=== PATIENT | male | born 1965 ===

== ENCOUNTER 2022-05-25 21:00 | Inpatient (IN) ==
[2022-05-25] MEDS ORDERED: PIPERACILLIN/TAZOBACTAM 3,375 MG in SODIUM CHLORIDE 0.9% 100 ML IV STA (22:01)
[2022-05-25 22:18] LABS: Basophils # 0.1 10*3/uL (0.0-0.2); Basophils % 0.3 % (0.0-0.8); Eosinophils # 0.1 10*3/uL (0.0-0.87); Eosinophils % 0.7 % (0.00-10.9); Hematocrit 23.6 VOL% (42.0-52.0); Hemoglobin 7.6 GM/DL (14.0-18.0); Immature Granulocytes % 0.7 %; Immature Granulocytes Absolute 0.12 #; Lymphocytes # 1.2 10*3/uL (1.4-4.0); Lymphocytes % 6.3 % (21.2-54.2); Mean Corpuscular HGB Conc 32.2 GM/DL (32-36); Mean Corpuscular Volume 86.1 FL (87-102); Mean Platelet Volume 9.9 FL (9.6-12.0); Monocytes # 1.7 10*3/uL (0.11-0.8); Platelet Count 258 T/CUMM (130-400); Red Blood Count 2.74 MC/CUMM (3.8-5.5); White Blood Count 18.4 T/CUMM (4-12)
[2022-05-25] MEDS ORDERED: diphenhydrAMINE CAP 25 MG CAPSULE PO PRN (22:18)
[2022-05-25] MEDS ORDERED: NICOTINE 21 MG/24 HR PATCH TRANSDERM PRN (22:18)
[2022-05-25] MEDS ORDERED: hydrALAZINE 20 MG/1 ML VIAL IV PRN (22:18)
[2022-05-25] MEDS ORDERED: guaiFENesin/DM ER 600-30 MG TABLET PO PRN (22:18)
[2022-05-25] MEDS ORDERED: ONDANSETRON 4 MG/2 ML VIAL IV PRN (22:18)
[2022-05-25] MEDS ORDERED: DEXTROSE 10% 250 ML BAG IV PRN (22:18)
[2022-05-25] MEDS ORDERED: ZALEPLON 5 MG CAPSULE PO PRN (22:18)
[2022-05-25] MEDS ORDERED: GLUCAGON 1 MG VIAL IM PRN (22:18)
[2022-05-25] MEDS ORDERED: ACETAMINOPHEN 325 MG TABLET PO PRN (22:18)
[2022-05-25 22:41] LABS: Bilirubin,Total 0.5 MG/DL (0.20-1.00); Calcium 7.9 MG/DL (8.5-10.1); Osmolality,Calculated 289.1 MOS/KG (273-304); Potassium 3.9 MMOL/L (3.5-5.1); Total Protein 6.9 G/DL (6.4-8.2)
[2022-05-25] MEDS ORDERED: VANCOMYCIN INJ 2,000 MG in SODIUM CHLORIDE 0.9% 500 ML IV ONE (23:00)
[2022-05-25] MEDS ORDERED: VANCOMYCIN INJ 2,000 MG in SODIUM CHLORIDE 0.9% 500 ML IV PRN (23:42)
[2022-05-26] MEDS: SODIUM CHLORIDE 0.9% 1,000 ML IV SCH ×2 (01:05→15:20)
[2022-05-26] MEDS: INSULIN LISPRO 100 UNIT/ML SUBCUT SCH ×4 (02:09→18:09)
[2022-05-26 06:17] LABS: Basophils # 0.1 10*3/uL (0.0-0.2); Basophils % 0.3 % (0.0-0.8); Eosinophils # 0.3 10*3/uL (0.0-0.87); Hematocrit 26.5 VOL% (42.0-52.0); Hemoglobin 8.3 GM/DL (14.0-18.0); Immature Granulocytes % 0.5 %; Immature Granulocytes Absolute 0.08 #; Lymphocytes # 1.1 10*3/uL (1.4-4.0); Lymphocytes % 6.9 % (21.2-54.2); Mean Corpuscular HGB Conc 31.3 GM/DL (32-36); Mean Corpuscular Volume 86.9 FL (87-102); Mean Platelet Volume 10.3 FL (9.6-12.0); Monocytes # 1.5 10*3/uL (0.11-0.8); Monocytes % 9.5 % (1.7-12.7); Neutrophils % 80.8 % (38.7-73.9); Platelet Count 234 T/CUMM (130-400); Red Blood Count 3.05 MC/CUMM (3.8-5.5); White Blood Count 15.6 T/CUMM (4-12)
[2022-05-26 06:40] LABS: Calcium 8.6 MG/DL (8.5-10.1); Osmolality,Calculated 290.5 MOS/KG (273-304); Potassium 3.4 MMOL/L (3.5-5.1)
[2022-05-26] MEDS: PIPERACILLIN/TAZOBACTAM 3.375 MG in SODIUM CHLORIDE 0.9% 100 ML IV SCH ×3 (06:47→21:34)
[2022-05-26] MEDS ORDERED: POTASSIUM CHLORIDE 20 MEQ TABLET PO ONE (08:30)
[2022-05-26] MEDS: PANTOPRAZOLE 40 MG TABLET PO SCH (08:33)
[2022-05-26] MEDS ORDERED: propofoL 200 MG/20 ML VIAL IV ONE (12:04)
[2022-05-26] MEDS ORDERED: LIDOCAINE 2% 5 ML VIAL ONE (12:04)
[2022-05-26] MEDS ORDERED: MIDAZOLAM 2 MG/2 ML VIAL ONE (12:04)
[2022-05-26] MEDS ORDERED: fentaNYL 100 MCG/2 ML VIAL ONE (12:04)
[2022-05-26 12:10] LABS: % Iron Saturation 11.2 % (18-50)
[2022-05-26] MEDS ORDERED: LIDOCAINE 1% 5 ML VIAL ONE (12:37)
[2022-05-26] MEDS ORDERED: BUPIVACAINE MPF 0.25% 10 ML VIAL ONE (12:37)
[2022-05-26] MEDS ORDERED: PHENYLEPHRINE 1 MG/10 ML SYRINGE IV ONE (13:23)
[2022-05-26] MEDS ORDERED: SEVOFLURANE 1 UNIT/15 MINUTE INH ONE (13:23)
[2022-05-26] MEDS ORDERED: HYDROmorphone 1 MG/1 ML SYRINGE IV PRN ×2 (14:21)
[2022-05-26] MEDS ORDERED: GLUCAGON 1 MG VIAL IM PRN ×2 (14:23→14:40)
[2022-05-26] MEDS ORDERED: DEXTROSE 10% 250 ML BAG IV PRN (14:23)
[2022-05-26] MEDS ORDERED: DEXTROSE 50% 25 GM/50 ML VIAL IV PRN (14:40)
[2022-05-26] MEDS ORDERED: ENOXAPARIN 30 MG/0.3 ML SYRINGE SUBCUT SCH (15:00)
[2022-05-26 16:44] LABS: Bilirubin,Urine Negative (Negative); Blood, Urine Small mg/dL (Negative); Glucose,Urine (UA) Negative (Negative); Ketones,Urine Negative (Negative); Nitrite,Urine Negative (Negative); Protein,Urine 100 mg/dL (Negative); Urine Appearance Clear (Clear); Urine Color Yellow (Yellow); Urine Urobilinogen 0.2 eU/dL (<2.0); Urine pH 5.5 (4.5-8.0)
[2022-05-26 16:48] LABS: Bacteria,Urine Occasional /HPF (Few); Hyaline Casts,Urine 1 /LPF (0-3); Mucus,Urine Occasional /LPF (Occasional); RBC,Urine 2 /HPF (0-4)
[2022-05-26] MEDS ORDERED: INSULIN GLARGINE 100 UNIT/ML SUBCUT SCH (21:00)
[2022-05-26] MEDS: LATANOPROST 0.005% OPH SOLN 2.5 ML BOTTLE BOTH EYES SCH (21:39)
[2022-05-27] MEDS: INSULIN LISPRO 100 UNIT/ML SUBCUT SCH ×4 (00:22→17:30)
[2022-05-27 05:33] LABS: Basophils # 0.1 10*3/uL (0.0-0.2); Basophils % 0.4 % (0.0-0.8); Eosinophils # 0.5 10*3/uL (0.0-0.87); Eosinophils % 3.2 % (0.00-10.9); Hematocrit 24.4 VOL% (42.0-52.0); Hemoglobin 7.6 GM/DL (14.0-18.0); Immature Granulocytes % 0.6 %; Immature Granulocytes Absolute 0.08 #; Lymphocytes # 1.4 10*3/uL (1.4-4.0); Lymphocytes % 9.9 % (21.2-54.2); Mean Corpuscular HGB Conc 31.1 GM/DL (32-36); Mean Corpuscular Volume 86.2 FL (87-102); Mean Platelet Volume 10.8 FL (9.6-12.0); Monocytes # 1.6 10*3/uL (0.11-0.8); Monocytes % 11.2 % (1.7-12.7); Neutrophils % 74.7 % (38.7-73.9); Platelet Count 229 T/CUMM (130-400); Red Blood Count 2.83 MC/CUMM (3.8-5.5)
[2022-05-27] MEDS: PIPERACILLIN/TAZOBACTAM 3.375 MG in SODIUM CHLORIDE 0.9% 100 ML IV SCH ×2 (05:59→20:23)
[2022-05-27 06:03] LABS: Osmolality,Calculated 294.4 MOS/KG (273-304); Potassium 3.8 MMOL/L (3.5-5.1)
[2022-05-27 06:08] LABS: Alanine Aminotransferase 82 U/L (16-61); Albumin 1.8 G/DL (3.4-5.0); Alkaline Phosphatase 141 U/L (45-117); Aspartate Amino Transferase 69 U/L (0-37); Bilirubin,Total < 0.39 MG/DL (0.20-1.00); Blood Urea Nitrogen 45 MG/DL (7-18); Calcium 7.9 MG/DL (8.5-10.1); Carbon Dioxide 20 MMOL/L (21-32); Chloride 112 MMOL/L (98-107); Glucose 198 MG/DL (74-106); Osmolality,Calculated 298.3 MOS/KG (273-304); Potassium 3.7 MMOL/L (3.5-5.1); Sodium 141 MMOL/L (136-145); Total Protein 6.7 G/DL (6.4-8.2)
[2022-05-27] MEDS ORDERED: POTASSIUM CHLORIDE 20 MEQ TABLET PO ONE (08:00)
[2022-05-27] MEDS ORDERED: MAGNESIUM SULF RIDER 2 GM/50 ML PREMIX IV ONE (08:15)
[2022-05-27] MEDS: CHOLECALCIFEROL 1,000 UNIT TABLET PO SCH (08:29)
[2022-05-27] MEDS: ROSUVASTATIN 20 MG TABLET PO SCH (08:29)
[2022-05-27] MEDS: PANTOPRAZOLE 40 MG TABLET PO SCH (08:29)
[2022-05-27] MEDS: CHLORTHALIDONE 25 MG TABLET PO SCH (08:29)
[2022-05-27] MEDS: SODIUM HYPOCHLORITE 0.25% IRRIG 473 ML BOTTLE TOP SCH (08:30)
[2022-05-27] MEDS: lisinopriL 20 MG TABLET PO SCH (08:30)
[2022-05-27] MEDS ORDERED: ENOXAPARIN 40 MG/0.4 ML SYRINGE SUBCUT SCH (08:30)
[2022-05-27] MEDS: ASPIRIN EC 81 MG TABLET PO SCH (08:30)
[2022-05-27] MEDS: CETIRIZINE 10 MG TABLET PO SCH (08:30)
[2022-05-27] MEDS: ENOXAPARIN 30 MG/0.3 ML SYRINGE SUBCUT SCH (08:38)
[2022-05-27] MEDS ORDERED: SODIUM CHLORIDE 0.9% 1,000 ML IV PRN (08:55)
[2022-05-27] MEDS ORDERED: VANCOMYCIN INJ 1,500 MG in SODIUM CHLORIDE 0.9% 500 ML IV PRN (09:23)
[2022-05-27 09:36] LABS: Hepatitis B Core IgM Quant 0.12 Index; Hepatitis B Surface Ag Quant < 0.10 Index; Hepatitis B Surface Ag Result Non-Reactive (NonReactive); Hepatitis C Virus Ab Quant 0.26 Index; Hepatitis C Virus Ab Result Non-Reactive (NonReactive)
[2022-05-27] MEDS ORDERED: VANCOMYCIN INJ 1,500 MG in SODIUM CHLORIDE 0.9% 500 ML IV ONE (10:00)
[2022-05-27] MEDS: FERRIC GLUCONATE COMPLEX 125 MG in SODIUM CHLORIDE 0.9% 100 ML IV SCH (11:55)
[2022-05-27] MEDS: LATANOPROST 0.005% OPH SOLN 2.5 ML BOTTLE BOTH EYES SCH (20:26)
[2022-05-27] MEDS ORDERED: INSULIN GLARGINE 100 UNIT/ML SUBCUT SCH ×2 (21:00)
[2022-05-27] MEDS: SODIUM CHLORIDE 0.9% 1,000 ML IV SCH (22:36)
[2022-05-28] MEDS: INSULIN LISPRO 100 UNIT/ML SUBCUT SCH ×4 (00:46→19:19)
[2022-05-28] MEDS: PIPERACILLIN/TAZOBACTAM 3.375 MG in SODIUM CHLORIDE 0.9% 100 ML IV SCH ×3 (04:01→21:25)
[2022-05-28 05:31] LABS: Basophils # 0.1 10*3/uL (0.0-0.2); Basophils % 0.5 % (0.0-0.8); Eosinophils # 0.7 10*3/uL (0.0-0.87); Eosinophils % 6.3 % (0.00-10.9); Hematocrit 27.2 VOL% (42.0-52.0); Hemoglobin 8.4 GM/DL (14.0-18.0); Immature Granulocytes % 0.6 %; Immature Granulocytes Absolute 0.07 #; Lymphocytes # 1.3 10*3/uL (1.4-4.0); Lymphocytes % 10.9 % (21.2-54.2); Mean Corpuscular HGB Conc 30.9 GM/DL (32-36); Mean Corpuscular Volume 85.5 FL (87-102); Mean Platelet Volume 10.2 FL (9.6-12.0); Monocytes # 1.1 10*3/uL (0.11-0.8); Monocytes % 9.8 % (1.7-12.7); Neutrophils % 71.9 % (38.7-73.9); Platelet Count 236 T/CUMM (130-400); Red Blood Count 3.18 MC/CUMM (3.8-5.5); Red Cell Distribution Width 15.4 % (9.3-17.3); White Blood Count 11.7 T/CUMM (4-12)
[2022-05-28 05:47] LABS: Alanine Aminotransferase 63 U/L (16-61); Albumin 1.8 G/DL (3.4-5.0); Alkaline Phosphatase 121 U/L (45-117); Aspartate Amino Transferase 32 U/L (0-37); Bilirubin,Total < 0.39 MG/DL (0.20-1.00); Blood Urea Nitrogen 38 MG/DL (7-18); Calcium 8.1 MG/DL (8.5-10.1); Carbon Dioxide 22 MMOL/L (21-32); Chloride 116 MMOL/L (98-107); Glucose 198 MG/DL (74-106); Sodium 143 MMOL/L (136-145); Total Protein 6.5 G/DL (6.4-8.2)
[2022-05-28 05:49] LABS: Calcium 7.9 MG/DL (8.5-10.1); Osmolality,Calculated 300.8 MOS/KG (273-304); Potassium 4.2 MMOL/L (3.5-5.1)
[2022-05-28] MEDS: lisinopriL 20 MG TABLET PO SCH (08:40)
[2022-05-28] MEDS: CHOLECALCIFEROL 1,000 UNIT TABLET PO SCH (08:40)
[2022-05-28] MEDS: CETIRIZINE 10 MG TABLET PO SCH (08:40)
[2022-05-28] MEDS: CHLORTHALIDONE 25 MG TABLET PO SCH (08:40)
[2022-05-28] MEDS: ASPIRIN EC 81 MG TABLET PO SCH (08:41)
[2022-05-28] MEDS: ENOXAPARIN 30 MG/0.3 ML SYRINGE SUBCUT SCH (08:41)
[2022-05-28] MEDS: FERRIC GLUCONATE COMPLEX 125 MG in SODIUM CHLORIDE 0.9% 100 ML IV SCH (08:41)
[2022-05-28] MEDS: ROSUVASTATIN 20 MG TABLET PO SCH (08:41)
[2022-05-28] MEDS: SODIUM HYPOCHLORITE 0.25% IRRIG 473 ML BOTTLE TOP SCH (08:41)
[2022-05-28] MEDS: PANTOPRAZOLE 40 MG TABLET PO SCH (08:41)
[2022-05-28] MEDS ORDERED: DEXTROSE 50% 25 GM/50 ML VIAL IV PRN (11:03)
[2022-05-28] MEDS ORDERED: GLUCAGON 1 MG VIAL IM PRN (11:03)
[2022-05-28] MEDS ORDERED: INSULIN GLARGINE 100 UNIT/ML SUBCUT SCH (21:00)
[2022-05-29] MEDS: LATANOPROST 0.005% OPH SOLN 2.5 ML BOTTLE BOTH EYES SCH (00:07)
[2022-05-29] MEDS: INSULIN LISPRO 100 UNIT/ML SUBCUT SCH ×3 (01:55→11:50)
[2022-05-29] MEDS: PIPERACILLIN/TAZOBACTAM 3.375 MG in SODIUM CHLORIDE 0.9% 100 ML IV SCH (04:53)
[2022-05-29 05:32] LABS: Basophils # 0.1 10*3/uL (0.0-0.2); Basophils % 0.7 % (0.0-0.8); Eosinophils # 0.8 10*3/uL (0.0-0.87); Eosinophils % 7.2 % (0.00-10.9); Hematocrit 27.4 VOL% (42.0-52.0); Hemoglobin 8.8 GM/DL (14.0-18.0); Immature Granulocytes Absolute 0.11 #; Lymphocytes # 1.1 10*3/uL (1.4-4.0); Lymphocytes % 10.8 % (21.2-54.2); Mean Corpuscular HGB Conc 32.1 GM/DL (32-36); Mean Corpuscular Volume 85.4 FL (87-102); Mean Platelet Volume 10.3 FL (9.6-12.0); Monocytes % 9.2 % (1.7-12.7); Neutrophils % 71.1 % (38.7-73.9); Platelet Count 269 T/CUMM (130-400); Red Blood Count 3.21 MC/CUMM (3.8-5.5); Red Cell Distribution Width 15.1 % (9.3-17.3); White Blood Count 10.6 T/CUMM (4-12)
[2022-05-29 05:55] LABS: Alanine Aminotransferase 45 U/L (16-61); Albumin 1.9 G/DL (3.4-5.0); Alkaline Phosphatase 106 U/L (45-117); Aspartate Amino Transferase 14 U/L (0-37); Bilirubin,Total < 0.39 MG/DL (0.20-1.00); Blood Urea Nitrogen 30 MG/DL (7-18); Calcium 8.4 MG/DL (8.5-10.1); Carbon Dioxide 22 MMOL/L (21-32); Chloride 114 MMOL/L (98-107); Glucose 220 MG/DL (74-106); Osmolality,Calculated 298.8 MOS/KG (273-304); Potassium 3.9 MMOL/L (3.5-5.1); Sodium 144 MMOL/L (136-145); Total Protein 6.6 G/DL (6.4-8.2)
[2022-05-29 05:56] LABS: Osmolality,Calculated 299.8 MOS/KG (273-304); Potassium 4.1 MMOL/L (3.5-5.1)
[2022-05-29] MEDS: CHLORTHALIDONE 25 MG TABLET PO SCH (08:54)
[2022-05-29] MEDS: lisinopriL 20 MG TABLET PO SCH (08:55)
[2022-05-29] MEDS ORDERED: GLUCAGON 1 MG VIAL IM PRN (09:00)
[2022-05-29] MEDS ORDERED: DEXTROSE 50% 25 GM/50 ML VIAL IV PRN (09:00)
[2022-05-29] MEDS: ROSUVASTATIN 20 MG TABLET PO SCH (09:15)
[2022-05-29] MEDS: CHOLECALCIFEROL 1,000 UNIT TABLET PO SCH (09:15)
[2022-05-29] MEDS: ASPIRIN EC 81 MG TABLET PO SCH (09:15)
[2022-05-29] MEDS: CETIRIZINE 10 MG TABLET PO SCH (09:15)
[2022-05-29] MEDS: PANTOPRAZOLE 40 MG TABLET PO SCH (09:15)
[2022-05-29] MEDS: ENOXAPARIN 30 MG/0.3 ML SYRINGE SUBCUT SCH (09:18)
[2022-05-29] MEDS: FERRIC GLUCONATE COMPLEX 125 MG in SODIUM CHLORIDE 0.9% 100 ML IV SCH (09:18)
[2022-05-29] MEDS: SODIUM HYPOCHLORITE 0.25% IRRIG 473 ML BOTTLE TOP SCH (09:20)
[2022-05-29 11:25] VITALS: BP 124/54
[2022-05-29] MEDS ORDERED: PIPERACILLIN/TAZOBACTAM 3,375 MG in SODIUM CHLORIDE 0.9% 100 ML IV SCH (14:00)
[2022-05-29] MEDS ORDERED: INSULIN GLARGINE 100 UNIT/ML SUBCUT SCH (21:00)
== END 2022-05-29 13:18 | disposition home or self-care (01) | DRG 240 ==
LOC: EDBD → EDUNIT# → N.ED 21:00 → N.3E 22:18 → SUATTDRO 22:18 → N.3E 05-26 00:17
PROVIDERS: ADMIT Internal Medicine; ATTEND Internal Medicine

== ENCOUNTER 2022-07-15 16:03 | Inpatient (IN) ==
[2022-07-15 18:06] LABS: Basophils % 0.3 % (0.0-0.8); Eosinophils # 0.3 10*3/uL (0.0-0.87); Eosinophils % 2.9 % (0.00-10.9); Hematocrit 26.5 VOL% (42.0-52.0); Hemoglobin 8.1 GM/DL (14.0-18.0); Immature Granulocytes % 0.6 %; Immature Granulocytes Absolute 0.05 #; Lymphocytes % 11.2 % (21.2-54.2); Mean Corpuscular HGB Conc 30.6 GM/DL (32-36); Mean Corpuscular Volume 84.4 FL (87-102); Mean Platelet Volume 9.5 FL (9.6-12.0); Monocytes # 0.9 10*3/uL (0.11-0.8); Monocytes % 9.9 % (1.7-12.7); Neutrophils % 75.1 % (38.7-73.9); Platelet Count 294 T/CUMM (130-400); Red Blood Count 3.14 MC/CUMM (3.8-5.5); Red Cell Distribution Width 16.4 % (9.3-17.3); White Blood Count 9.1 T/CUMM (4-12)
[2022-07-15] MEDS ORDERED: PIPERACILLIN/TAZOBACTAM 3,375 MG in SODIUM CHLORIDE 0.9% 100 ML IV STA (18:26)
[2022-07-15 18:46] LABS: Alanine Aminotransferase 15 U/L (16-61); Albumin 2.7 G/DL (3.4-5.0); Alkaline Phosphatase 98 U/L (45-117); Aspartate Amino Transferase 14 U/L (0-37); Bilirubin,Total < 0.39 MG/DL (0.20-1.00); Blood Urea Nitrogen 34 MG/DL (7-18); Calcium 8.6 MG/DL (8.5-10.1); Carbon Dioxide 24 MMOL/L (21-32); Chloride 109 MMOL/L (98-107); Glucose 107 MG/DL (74-106); Osmolality,Calculated 282.7 MOS/KG (273-304); Potassium 4.3 MMOL/L (3.5-5.1); Sodium 138 MMOL/L (136-145); Total Protein 7.1 G/DL (6.4-8.2)
[2022-07-15] MEDS ORDERED: HYDROmorphone 1 MG/1 ML SYRINGE IV PRN (19:52)
[2022-07-15] MEDS ORDERED: GLUCAGON 1 MG VIAL IM PRN (19:52)
[2022-07-15] MEDS ORDERED: ONDANSETRON 4 MG/2 ML VIAL IV PRN (19:52)
[2022-07-15] MEDS ORDERED: ACETAMINOPHEN 325 MG TABLET PO PRN (19:52)
[2022-07-15] MEDS ORDERED: DEXTROSE 10% 250 ML BAG IV PRN (20:00)
[2022-07-15] MEDS ORDERED: cephALEXin 500 MG CAPSULE PO SCH (21:00)
[2022-07-15] MEDS: SODIUM CHLORIDE 0.9% 1,000 ML IV SCH (22:47)
[2022-07-15] MEDS: INSULIN GLARGINE 100 UNIT/ML SUBCUT SCH (22:57)
[2022-07-16] MEDS: INSULIN REGULAR 100 UNIT/ML SUBCUT SCH ×2 (00:22→06:41)
[2022-07-16] MEDS: PIPERACILLIN/TAZOBACTAM 3,375 MG in SODIUM CHLORIDE 0.9% 100 ML IV SCH ×3 (03:32→20:38)
[2022-07-16 05:11] LABS: Basophils % 0.6 % (0.0-0.8); Eosinophils # 0.3 10*3/uL (0.0-0.87); Eosinophils % 4.8 % (0.00-10.9); Hematocrit 22.4 VOL% (42.0-52.0); Hemoglobin 6.9 GM/DL (14.0-18.0); Immature Granulocytes Absolute 0.07 #; Lymphocytes % 14.3 % (21.2-54.2); Mean Corpuscular HGB Conc 30.8 GM/DL (32-36); Mean Corpuscular Volume 86.2 FL (87-102); Mean Platelet Volume 9.8 FL (9.6-12.0); Monocytes # 0.7 10*3/uL (0.11-0.8); Monocytes % 10.3 % (1.7-12.7); Platelet Count 267 T/CUMM (130-400); Red Cell Distribution Width 16.1 % (9.3-17.3); White Blood Count 7.1 T/CUMM (4-12)
[2022-07-16 05:33] LABS: Alanine Aminotransferase 15 U/L (16-61); Albumin 2.3 G/DL (3.4-5.0); Alkaline Phosphatase 94 U/L (45-117); Aspartate Amino Transferase 9 U/L (0-37); Bilirubin,Total < 0.39 MG/DL (0.20-1.00); Blood Urea Nitrogen 30 MG/DL (7-18); Calcium 8.9 MG/DL (8.5-10.1); Carbon Dioxide 27 MMOL/L (21-32); Chloride 110 MMOL/L (98-107); Glucose 235 MG/DL (74-106); Potassium 4.3 MMOL/L (3.5-5.1); Sodium 143 MMOL/L (136-145)
[2022-07-16 07:57] LABS: Hematocrit 22.6 VOL% (42.0-52.0); Hemoglobin 6.7 GM/DL (14.0-18.0)
[2022-07-16] MEDS ORDERED: INSULIN ASPART PROTAMINE/ASPART 70/30 100 UNIT/ML SUBCUT SCH (08:00)
[2022-07-16] MEDS ORDERED: INSULIN LISPRO 100 UNIT/ML SUBCUT SCH (08:00)
[2022-07-16] MEDS: sitaGLIPtin 25 MG TABLET PO SCH ×2 (08:30→11:51)
[2022-07-16] MEDS: CHLORTHALIDONE 25 MG TABLET PO SCH ×2 (08:30→11:50)
[2022-07-16] MEDS: PANTOPRAZOLE 40 MG TABLET PO SCH (08:31)
[2022-07-16] MEDS: INSULIN GLARGINE 100 UNIT/ML SUBCUT SCH (08:35)
[2022-07-16] MEDS ORDERED: SODIUM CHLORIDE 0.9% 1,000 ML IV PRN (09:13)
[2022-07-16] MEDS ORDERED: SODIUM CHLORIDE 0.9% 1,000 ML IV ONE (09:13)
[2022-07-16] MEDS: SODIUM CHLORIDE 0.9% 1,000 ML IV SCH ×2 (10:26→11:39)
[2022-07-16] MEDS ORDERED: DEXTROSE 50% 25 GM/50 ML VIAL IV PRN (10:44)
[2022-07-16] MEDS: INSULIN LISPRO 100 UNIT/ML SUBCUT SCH ×3 (11:52→20:39)
[2022-07-16] MEDS: SODIUM HYPOCHLORITE 0.25% IRRIG 473 ML BOTTLE TOP SCH (12:48)
[2022-07-16 20:32] LABS: Hematocrit 29.1 VOL% (42.0-52.0); Hemoglobin 9.1 GM/DL (14.0-18.0)
[2022-07-16] MEDS: TAMSULOSIN 0.4 MG CAPSULE PO SCH (20:38)
[2022-07-17] MEDS: SODIUM CHLORIDE 0.9% 1,000 ML IV SCH ×4 (00:33→22:26)
[2022-07-17] MEDS: INSULIN LISPRO 100 UNIT/ML SUBCUT SCH ×6 (00:33→22:27)
[2022-07-17] MEDS: PIPERACILLIN/TAZOBACTAM 3,375 MG in SODIUM CHLORIDE 0.9% 100 ML IV SCH ×3 (02:14→18:56)
[2022-07-17 05:34] LABS: Basophils % 0.5 % (0.0-0.8); Eosinophils # 0.5 10*3/uL (0.0-0.87); Eosinophils % 5.9 % (0.00-10.9); Hematocrit 30.2 VOL% (42.0-52.0); Hemoglobin 9.4 GM/DL (14.0-18.0); Immature Granulocytes % 0.9 %; Immature Granulocytes Absolute 0.07 #; Lymphocytes # 1.1 10*3/uL (1.4-4.0); Lymphocytes % 13.6 % (21.2-54.2); Mean Corpuscular HGB Conc 31.1 GM/DL (32-36); Mean Corpuscular Volume 85.6 FL (87-102); Mean Platelet Volume 9.7 FL (9.6-12.0); Monocytes # 0.8 10*3/uL (0.11-0.8); Monocytes % 9.2 % (1.7-12.7); Neutrophils % 69.9 % (38.7-73.9); Platelet Count 277 T/CUMM (130-400); Red Blood Count 3.53 MC/CUMM (3.8-5.5); Red Cell Distribution Width 16.2 % (9.3-17.3); White Blood Count 8.2 T/CUMM (4-12)
[2022-07-17 05:53] LABS: Calcium 8.8 MG/DL (8.5-10.1); Osmolality,Calculated 291.8 MOS/KG (273-304); Potassium 4.2 MMOL/L (3.5-5.1)
[2022-07-17] MEDS ORDERED: LIDOCAINE 2% 5 ML VIAL ONE (11:21)
[2022-07-17] MEDS ORDERED: MIDAZOLAM 2 MG/2 ML VIAL ONE (11:21)
[2022-07-17] MEDS ORDERED: propofoL 200 MG/20 ML VIAL IV ONE (11:21)
[2022-07-17] MEDS ORDERED: fentaNYL 100 MCG/2 ML VIAL ONE (11:22)
[2022-07-17] MEDS ORDERED: DEXAMETHASONE 4 MG/1 ML VIAL ONE (12:13)
[2022-07-17] MEDS ORDERED: ONDANSETRON 4 MG/2 ML VIAL ONE (12:13)
[2022-07-17] MEDS ORDERED: ACETAMINOPHEN INJ 1,000 MG/100 ML VIAL IV ONE (12:13)
[2022-07-17] MEDS ORDERED: ePHEDrine 50 MG/ML VIAL ONE (12:33)
[2022-07-17] MEDS ORDERED: PHENYLEPHRINE 1 MG/10 ML SYRINGE IV ONE ×2 (12:35→12:55)
[2022-07-17] MEDS ORDERED: SEVOFLURANE 1 UNIT/15 MINUTE INH ONE ×2 (12:35→12:55)
[2022-07-17] MEDS: SODIUM HYPOCHLORITE 0.25% IRRIG 473 ML BOTTLE TOP SCH (12:54)
[2022-07-17] MEDS: INSULIN GLARGINE 100 UNIT/ML SUBCUT SCH (12:55)
[2022-07-17] MEDS: CETIRIZINE 10 MG TABLET PO SCH ×3 (12:55→14:26)
[2022-07-17] MEDS ORDERED: ONDANSETRON 4 MG/2 ML VIAL IV PRN (13:31)
[2022-07-17] MEDS: HYDROmorphone 1 MG/1 ML SYRINGE IV PRN ×2 (13:37→13:44)
[2022-07-17] MEDS: ROSUVASTATIN 20 MG TABLET PO SCH (14:22)
[2022-07-17] MEDS: CHLORTHALIDONE 25 MG TABLET PO SCH (14:22)
[2022-07-17] MEDS: ASPIRIN EC 81 MG TABLET PO SCH (14:22)
[2022-07-17] MEDS: sitaGLIPtin 25 MG TABLET PO SCH (14:23)
[2022-07-17] MEDS: PANTOPRAZOLE 40 MG TABLET PO SCH (14:23)
[2022-07-17] MEDS: TAMSULOSIN 0.4 MG CAPSULE PO SCH (21:03)
[2022-07-18] MEDS: INSULIN LISPRO 100 UNIT/ML SUBCUT SCH ×6 (00:10→20:28)
[2022-07-18] MEDS: SODIUM CHLORIDE 0.9% 1,000 ML IV SCH ×3 (01:31→18:42)
[2022-07-18] MEDS: PIPERACILLIN/TAZOBACTAM 3,375 MG in SODIUM CHLORIDE 0.9% 100 ML IV SCH ×3 (03:40→18:09)
[2022-07-18] MEDS: sitaGLIPtin 25 MG TABLET PO SCH (09:21)
[2022-07-18] MEDS: ASPIRIN EC 81 MG TABLET PO SCH (09:21)
[2022-07-18] MEDS: ROSUVASTATIN 20 MG TABLET PO SCH (09:21)
[2022-07-18] MEDS: CETIRIZINE 10 MG TABLET PO SCH (09:22)
[2022-07-18] MEDS: CHLORTHALIDONE 25 MG TABLET PO SCH (09:22)
[2022-07-18] MEDS: PANTOPRAZOLE 40 MG TABLET PO SCH (09:22)
[2022-07-18] MEDS: INSULIN GLARGINE 100 UNIT/ML SUBCUT SCH (09:23)
[2022-07-18] MEDS: SODIUM HYPOCHLORITE 0.25% IRRIG 473 ML BOTTLE TOP SCH (12:06)
[2022-07-18] MEDS: TAMSULOSIN 0.4 MG CAPSULE PO SCH (20:27)
[2022-07-19] MEDS: INSULIN LISPRO 100 UNIT/ML SUBCUT SCH ×4 (01:09→13:41)
[2022-07-19] MEDS: PIPERACILLIN/TAZOBACTAM 3,375 MG in SODIUM CHLORIDE 0.9% 100 ML IV SCH ×2 (03:11→10:36)
[2022-07-19] MEDS: INSULIN GLARGINE 100 UNIT/ML SUBCUT SCH (09:08)
[2022-07-19] MEDS: CHLORTHALIDONE 25 MG TABLET PO SCH (09:09)
[2022-07-19] MEDS: CETIRIZINE 10 MG TABLET PO SCH (09:09)
[2022-07-19] MEDS: sitaGLIPtin 25 MG TABLET PO SCH (09:09)
[2022-07-19] MEDS: ROSUVASTATIN 20 MG TABLET PO SCH (09:09)
[2022-07-19] MEDS: PANTOPRAZOLE 40 MG TABLET PO SCH (09:09)
[2022-07-19] MEDS: ASPIRIN EC 81 MG TABLET PO SCH (09:09)
[2022-07-19] MEDS: SODIUM HYPOCHLORITE 0.25% IRRIG 473 ML BOTTLE TOP SCH (10:36)
[2022-07-19] MEDS: SODIUM CHLORIDE 0.9% 1,000 ML IV SCH (10:36)
[2022-07-19 11:33] VITALS: BP 124/62
== END 2022-07-19 14:41 | disposition home health service (06) | DRG 617 ==
LOC: N.ED 16:03 → N.EDINP 16:03 → N.3E 20:22 → N.SDSINP 20:22 → N.3E 21:44 → UNDODISOB 07-19 14:41
PROVIDERS: ADMIT Surgery; ATTEND Surgery